=== PATIENT | male | born 1955 | race Caucasian/White ===

== ENCOUNTER 2025-02-01 09:00 | Day surgery (SDC) | payer MEDICARE ==
[2025-02-01] VITALS (12 sets, daily range): BP systolic 132–165; BP diastolic 65–96; PULSE 56–72; RESP 13–19; O2SAT 95–97
[~2025-02-01] VITALS: Ht 182.9 cm; Wt 123.0 kg
--- NOTE | 2025-02-01 09:35 | RADIOLOGY REPORT ---
DI CHEST,TWO VIEWS CLINICAL HISTORY: Pre heart cath COMPARISON: None TECHNIQUE: Frontal and lateral view of the chest was obtained FINDINGS: Lines and Tubes: None Lungs: No focal consolidation. Pleura: No effusion. No pneumothorax. Cardiomediastinal contours: Unremarkable Bones: No acute osseous abnormality. IMPRESSION: No acute cardiopulmonary disease.
[2025-02-01] MEDS ORDERED: LISI1TAB51 PO (09:41)
[2025-02-01] MEDS ORDERED: ALLO100T PO (09:41)
[2025-02-01] MEDS ORDERED: TAMS-55 PO (09:41)
[2025-02-01] MEDS ORDERED: DILT120T3 PO (09:41)
[2025-02-01] MEDS ORDERED: IBUP-1984 PO (09:42)
[2025-02-01 10:21] LABS: CREATININE 0.66 MG/DL (0.60-1.10); TOTAL CARBON DIOXIDE 27.8 MMOL/L (24-32); eCRCL 119 ML/MIN; eGFR > 90 ML/MIN
[2025-02-01 10:24] LABS: INR 1.0 INR
[2025-02-01] MEDS ORDERED: midazolam 1 mg/ML 2ml injection ONE (10:38)
[2025-02-01] MEDS ORDERED: fentaNYL/PF 50MCG/1 ML 2ML syringe ONE (10:38)
[2025-02-01] MEDS ORDERED: iohexol 350 MG/ML 50ML vial IV ONE (10:38)
[2025-02-01] MEDS ORDERED: heparin 1,000unit/ml 10ml vial 0 ML ONE (10:38)
[2025-02-01] MEDS ORDERED: LIDOcaine 1% 30ml preserv. free vial ONE (10:38)
--- NOTE | 2025-02-01 11:11 | ELECTROCARDIOGRAPH REPORT ---
[facility] Test Date: 2025-02-01 Test Time: 10:53:10 Pat Name: MYCHAL NORMAN Department: SHORT STAY 1ST FLOOR Room: Gender: M Math Coach: : 1955 Requested By: ALEXANDRA HWANG Order Number: [id number] Reading MD: Dr. RUBY Deutsch Measurements Intervals [place] Rate: 61 P: 47 [place]: 193 QRS: 52 QRSD: 110 T: 46 QT: 452 QTc: 456 Interpretive Statements Sinus rhythm Low voltage, precordial leads Electronically Signed On 02-01-2025 19:18:[address] RUBY Deutsch Please click the below link to view image of tracing.
[2025-02-01] MEDS ORDERED: OXAZEpam 15mg capsule PO PRN (12:15)
[2025-02-01] MEDS ORDERED: HYDROcodone/acetaminophen 5mg/325mg tablet PO PRN (12:15)
[2025-02-01] MEDS ORDERED: HYDROcodone/acetaminophen 10/325mg tab PO PRN (12:15)
[2025-02-01] MEDS ORDERED: ondansetron/PF 4mg/2ml inj IV PRN (12:15)
--- NOTE | 2025-02-01 17:05 | CARDIOLOGY REPORT ---
DATE OF SERVICE: 02/01/2025 DICTATING PHYSICIAN: Neel Quintana MD LOCATION: [facility]. PROCEDURES: * Left heart catheterization. * Left ventriculography. * Left and right coronary arteriography, selective. * Right iliofemoral arteriogram, Angio-Seal application. * Conscious sedation administration, 30 minutes. BRIEF HISTORY/INDICATION: A 69-year-old male has a large mediastinal mass that he will be going to [facility] for surgical repair, it may be a large goiter. He had an abnormal Lexiscan with inferior wall defect. PET scanning showed three-vessel calcific coronary artery disease. He has class 3 dyspnea on exertion and chest pressure. He is status post osteomyelitis, right toe with amputation. He has chronic varicose veins and chronic edema. Risks, benefits, and alternatives of diagnostic heart catheterization were discussed with him and he wants to proceed. Risks included, not restricted to , stroke, myocardial infarction, renal failure, neurologic or vascular complication, bleeding complication, allergic reaction. TECHNIQUE: Following the usual sterile preparation and draping, right groin was infiltrated with 10 mL of 1% lidocaine in right femoral artery. The patient was treated with 25 mg of Benadryl, 2 mg of Versed, and 100 mcg of fentanyl. Following single-wall puncture technique, J-tip guidewire lead, a 6-Maori sheath was introduced in the right femoral artery. Selective left and right coronary arteriography were performed with left coronary and right coronary angiography. Left ventriculography in right anterior oblique projection was performed. Catheter exchanges were performed under fluoroscopic guidance and J-tip guidewire lead. At termination, right iliofemoral arteriogram was performed. Angio-Seal was applied in laborer salvage. Hemostasis was obtained. There were no complications. An 85 mL of Omnipaque 350 contrast was administered. Fluoroscopy time was 5.7 minutes. Radiation dose exposure not recorded accurately. Stated 94 cGy/cm2, which is inaccurate. FINDINGS: AO 143/70. LV 143/2-14. 6 feet, 271 pounds. LEFT VENTRICULOGRAM: Normal contractility, ejection fraction of 66%. CORONARY ARTERIES: There is a smooth left main coronary artery, a smooth left anterior descending. There is a smooth left circumflex arising nearly from the ostial segment of the right coronary artery. The circumflex provides 2 posterolateral branches. RESULTS: * Normal left ventriculogram. Ejection fraction of 66%. * Smooth left main coronary, left anterior descending, left circumflex, and right coronary artery. 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 COMMENT: The patient has false positive nuclear stress test. There is no cardiac contraindication to proceed with surgery as is needed. Neel Quintana MD TID: [id number] RECEIPT: [id number] TR/YULIET cc: Desmond Hagen MD
== END 2025-02-01 17:45 | disposition home or self-care (01) ==
LOC: SSTAY O 09:00
PROVIDERS: ATTEND Internal Medicine Cardiovascular Disease
DX: R94.39 Abnormal result of other cardiovascular function study (principal); I10 Essential (primary) hypertension; J44.9 Chronic obstructive pulmonary disease, unspecified; E66.9 Obesity, unspecified; Z68.36 Body mass index [BMI] 36.0-36.9, adult
CPT/HCPCS: 36415; 71046; 80048; 85610; 93005; 93458; 99152; 99153; A6258; C1760; J1200; J1644; J2003; J2250; J3010; J7030; Q9967; Z7610